=== PATIENT | female | born 1935 | race Caucasian/White ===

== ENCOUNTER 2016-04-12 09:13 | Emergency (ER) | payer OTHER ==
[~2016-04-12] VITALS: Ht 165.1 cm; Wt 67.8 kg
[~2016-04-12 09:13] MED LIST: NORVASC2.5 MG PO; OMEPRAZOLE20 M2 PO; SIMVASTATIN10 MG PO; ZESTRIL,PRINIVIL5 MG PO
[2016-04-12] MEDS ORDERED: B-12500 MC1 SL (10:10)
[2016-04-12 12:09] LABS: EOSINOPHIL (%) 0.3 % (0-5); HEMATOCRIT 41.5 % (36.0-46.0); IMMATURE GRANULOCYTE (%) 0.1 % (0.0-0.7); IMMATURE GRANULOCYTE COUNT 0.1 K/uL; LYMPHOCYTE COUNT 1.7 K/uL (1.0-2.8); MCH 32.9 PG (29.0-34.0); MCHC 34.5 G/DL (30.0-36.0); MCV 95.4 FL (83-99); MEAN PLAT.VOLUME 9.4 uM^3 (9.5-12.4); MONOCYTE (%) 10.1 % (3-12); NEUTROPHIL (%) 71.9 % (45-76); NEUTROPHIL COUNT 6.8 K/uL (1.8-6.4); PLATELET COUNT 229 K/uL (156-360); RBC DIS.WIDTH-CV 13.1 % (11.8-14.6); RED BLOOD COUNT 4.35 M/uL (3.80-5.20); WHITE BLOOD COUNT 9.5 K/uL (4.1-10.2)
[2016-04-12 12:17] LABS: CHLORIDE 106 mEq/L (99-109); POTASSIUM 3.6 mEq/L (3.7-5.4); SODIUM 141 mEq/L (136-147)
[2016-04-12 12:19] LABS: GLUCOSE 92 mg/dL (70-99)
[2016-04-12 12:20] LABS: ANION GAP 10 MEQ/L (2-14)
[2016-04-12 12:24] LABS: GFR ESTIMATE (CALCULATED) > 59 mL/min/; UREA NITROGEN (BUN) 12 mg/dL (9-23)
[2016-04-12 13:01] VITALS: BP 135/84
[2016-04-12] MEDS ORDERED: XARELTO15 MG PO (14:46)
== END 2016-04-12 15:15 | disposition home or self-care (01) ==
LOC: EME 09:13
PROVIDERS: Emergency Medicine
DX: I82.442 Acute embolism and thrombosis of left tibial vein (principal); Z98.890 Other specified postprocedural states; E78.5 Hyperlipidemia, unspecified
CPT/HCPCS: 73564; 80048; 85025; 93971; 99281; 99284

== ENCOUNTER 2016-04-15 13:09 | Emergency (ER) | payer OTHER ==
[~2016-04-15] VITALS: Ht 165.1 cm; Wt 69.0 kg
[~2016-04-15 13:09] MED LIST changes: +B-12500 MC1 SL; +XARELTO15 MG PO
[2016-04-15 14:04] LABS: HEMATOCRIT 42.7 % (36.0-46.0); MCH 32.7 PG (29.0-34.0); MCHC 34.4 G/DL (30.0-36.0); MCV 94.9 FL (83-99); MEAN PLAT.VOLUME 9.5 uM^3 (9.5-12.4); PLATELET COUNT 270 K/uL (156-360); RBC DIS.WIDTH-CV 12.7 % (11.8-14.6); RBC DIS.WIDTH-SD 42.7 % (39-53); WHITE BLOOD COUNT 11.5 K/uL (4.1-10.2)
[2016-04-15 14:12] LABS: CHLORIDE 107 mEq/L (99-109); POTASSIUM 3.5 mEq/L (3.7-5.4); SODIUM 144 mEq/L (136-147)
[2016-04-15 14:13] LABS: GLUCOSE 105 mg/dL (70-99)
[2016-04-15 14:14] VITALS: BP 148/120
[2016-04-15 14:15] LABS: ANION GAP 13 MEQ/L (2-14)
[2016-04-15 14:17] LABS: GFR ESTIMATE (CALCULATED) > 59 mL/min/
[2016-04-15 14:18] LABS: UREA NITROGEN (BUN) 12 mg/dL (9-23)
[2016-04-15 14:30] VITALS: BP 124/65
[2016-04-15 15:19] VITALS: BP 124/65
== END 2016-04-15 15:15 | disposition home or self-care (01) ==
LOC: EME 13:09
DX: K92.2 Gastrointestinal hemorrhage, unspecified (principal); I82.402 Acute embolism and thrombosis of unspecified deep veins of left lower extremity; E78.5 Hyperlipidemia, unspecified; I10 Essential (primary) hypertension; Z86.718 Personal history of other venous thrombosis and embolism
CPT/HCPCS: 80048; 85027; 86850; 86900; 86901; 99281; 99284

== ENCOUNTER 2017-02-16 10:52 | Inpatient (IN) | payer OTHER ==
[~2017-02-16] VITALS: Ht 167.6 cm; Wt 75.8 kg
[2017-02-16 11:37] LABS: BASOPHIL (%) 0.1 % (0-1); EOSINOPHIL (%) 0 % (0-5); HEMATOCRIT 44.2 % (36.0-46.0); HEMOGLOBIN 14.6 G/DL (11.9-15.5); IMMATURE GRANULOCYTE (%) 0.5 % (0.0-0.7); LYMPHOCYTE (%) 2.1 % (15-42); LYMPHOCYTE COUNT 0.3 K/uL (1.0-2.8); MCV 96.9 FL (83-99); MONOCYTE (%) 4.7 % (3-12); MONOCYTE COUNT 0.6 K/uL (0-0.8); NEUTROPHIL (%) 92.6 % (45-76); NEUTROPHIL COUNT 12.2 K/uL (1.8-6.4); PLATELET COUNT 242 K/uL (156-360); RED BLOOD COUNT 4.56 M/uL (3.80-5.20); WHITE BLOOD COUNT 13.2 K/uL (4.1-10.2)
[2017-02-16 11:41] LABS: INTER. NORMALIZED RATIO 1.2
[2017-02-16 11:44] LABS: PTT 21.7 SEC (25-37)
[2017-02-16 11:47] LABS: ALBUMIN 3.4 g/dL (3.2-4.8); CHLORIDE 103 mEq/L (99-109); POTASSIUM 3.6 mEq/L (3.7-5.4); SODIUM 141 mEq/L (136-147)
[2017-02-16 11:50] LABS: GLUCOSE 142 mg/dL (70-99)
[2017-02-16 11:52] LABS: TOTAL BILIRUBIN 0.8 mg/dL (0.0-1.0)
[2017-02-16 11:53] LABS: ALKALINE PHOSPHATASE 83 IU/L (3-129); GFR ESTIMATE (CALCULATED) 57 mL/min/
[2017-02-16 11:54] LABS: UREA NITROGEN (BUN) 21 mg/dL (9-23)
[2017-02-16 11:55] LABS: AST (GOT) 17 IU/L (2-34)
[2017-02-16 11:56] LABS: ALT (GPT) 14 IU/L (3-49); CREATINE KINASE 59 IU/L (1-294); TOTAL CK 59 IU/L (1-294)
[2017-02-16 11:57] LABS: TROP-I INTERPRETATION NEGATIVE; TROPONIN-I 0.14 ng/mL (0.0-0.30)
[2017-02-16 12:04] LABS: CK-MB 2.8 ng/mL (0.0-4.9); CKMB RELATIVE INDEX 4.7 (0.0-3.9)
[2017-02-16] MEDS ORDERED: LO-DOSE ASPIRIN81 M2 PO (12:19)
[2017-02-16 18:21] VITALS: BP 93/54
[2017-02-16 19:39] VITALS: BP 131/73
[2017-02-16 20:45] VITALS: BP 162/91
[2017-02-16 23:02] VITALS: BP 107/58
[2017-02-17] VITALS (7 sets, daily range): BP systolic 96–144; BP diastolic 56–80
[2017-02-17 03:37] LABS: INTER. NORMALIZED RATIO 1.4
[2017-02-17 16:03] LABS: CARBOXY HGB 2.1 % (0-5); METHEMOGLOBIN 1.6 % (0-1.5); PCO2 49 mm Hg (35-45); PO2 70 mm Hg (80-100); pH 7.38 (7.35-7.45)
[2017-02-17 16:04] LABS: COMMENTS - BLOOD GASES A+C+; DEVICE NC; O2 FLOW 4 L/MIN; SITE RR; TOTAL RESP RATE 22 resp/min
[2017-02-18 03:31] VITALS: BP 118/64
[2017-02-18 06:27] LABS: INTER. NORMALIZED RATIO 1.2
[2017-02-18 06:30] LABS: HEMATOCRIT 40.7 % (36.0-46.0); MCH 31.6 PG (29.0-34.0); MCHC 31.9 G/DL (30.0-36.0); PLATELET COUNT 309 K/uL (156-360); RBC DIS.WIDTH-CV 14.1 % (11.8-14.6); RBC DIS.WIDTH-SD 51.9 % (39-53); RED BLOOD COUNT 4.11 M/uL (3.80-5.20); WHITE BLOOD COUNT 17.9 K/uL (4.1-10.2)
[2017-02-18 06:31] LABS: CHLORIDE 104 MEQ/L (99-109); CREATININE 1.4 MG/DL (0.6-1.3); GFR ESTIMATE (CALCULATED) 38 mL/min/; GLUCOSE 206 mg/dL (70-99); SODIUM 139 MEQ/L (136-147)
[2017-02-18 06:33] LABS: POTASSIUM 4.9 MEQ/L (3.7-5.4); UREA NITROGEN (BUN) 39 mg/dL (9-23)
[2017-02-18 06:52] LABS: PTT 72.7 SEC (25-37)
[2017-02-18 07:15] VITALS: BP 129/66
[2017-02-18 11:15] VITALS: BP 117/72
[2017-02-18 17:08] LABS: TYPE OF FLUID PLEURAL
[2017-02-18 17:50] LABS: BODY FLUID GLUCOSE 220 MG/DL; BODY FLUID LDH 70 IU/L
[2017-02-18 18:18] LABS: BODY FLUID PROTEIN < 3.0 G/DL
[2017-02-18 18:29] LABS: APPEARANCE HAZY-YELLOW; BODY FLUID EOSINOPHILS 0 % (0-25); BODY FLUID RBC'S 1000 /MM^3 (0-100); BODY FLUID WBC'S 3534 /MM^3 (0-500); MONONUCLEAR WBC'S 100 %; POLYNUCLEAR WBC'S 0 % (0-25)
[2017-02-18 19:33] VITALS: BP 134/64
[2017-02-18 23:23] VITALS: BP 139/81
[2017-02-19 04:29] VITALS: BP 138/79
[2017-02-19 05:36] LABS: INTER. NORMALIZED RATIO 1.5
[2017-02-19 05:38] LABS: PTT 76.4 SEC (25-37)
[2017-02-19 07:46] VITALS: BP 137/72
[2017-02-19 11:25] LABS: CHLORIDE 102 MEQ/L (99-109); POTASSIUM 5.5 MEQ/L (3.7-5.4); SODIUM 136 MEQ/L (136-147)
[2017-02-19 11:32] LABS: GFR ESTIMATE (CALCULATED) 27 mL/min/; GLUCOSE 187 mg/dL (70-99)
[2017-02-19 11:40] LABS: CREATININE 1.9 MG/DL (0.6-1.3); UREA NITROGEN (BUN) 60 mg/dL (9-23)
[2017-02-19 11:56] VITALS: BP 109/58
[2017-02-19 17:11] VITALS: BP 144/65
[2017-02-19 19:10] VITALS: BP 92/58
[2017-02-19 20:06] LABS: BILIRUBIN NEGATIVE; BLOOD NEGATIVE; COLOR YELLOW ((YELLOW)); GLUCOSE (STRIP) NEGATIVE; KETONES NEGATIVE; LEUKOCYTES NEGATIVE; NITRITE NEGATIVE; PROTEIN (STRIP) NEGATIVE; UROBILINOGEN 0.2 MG/DL (0.2-1.0)
[2017-02-19 20:07] LABS: APPEARANCE CLEAR ((CLEAR))
[2017-02-19 23:31] VITALS: BP 121/78
[2017-02-20 04:09] VITALS: BP 103/65
[2017-02-20 05:53] LABS: BASOPHIL (%) 0.2 % (0-1); EOSINOPHIL (%) 0 % (0-5); HEMATOCRIT 40.8 % (36.0-46.0); HEMOGLOBIN 13.4 G/DL (11.9-15.5); IMMATURE GRANULOCYTE (%) 1.6 % (0.0-0.7); LYMPHOCYTE COUNT 0.6 K/uL (1.0-2.8); MCH 32.9 PG (29.0-34.0); MCHC 32.8 G/DL (30.0-36.0); MCV 100.2 FL (83-99); MONOCYTE (%) 3.4 % (3-12); MONOCYTE COUNT 0.7 K/uL (0-0.8); NEUTROPHIL (%) 91.8 % (45-76); NEUTROPHIL COUNT 18.5 K/uL (1.8-6.4); PLATELET COUNT 260 K/uL (156-360); RBC DIS.WIDTH-CV 14.1 % (11.8-14.6); RBC DIS.WIDTH-SD 51.4 % (39-53); RED BLOOD COUNT 4.07 M/uL (3.80-5.20); WHITE BLOOD COUNT 20.1 K/uL (4.1-10.2)
[2017-02-20 06:02] LABS: INTER. NORMALIZED RATIO 1.9
[2017-02-20 06:06] LABS: PTT 74.5 SEC (25-37)
[2017-02-20 06:20] LABS: CHLORIDE 102 MEQ/L (99-109); CREATININE 1.8 MG/DL (0.6-1.3); GFR ESTIMATE (CALCULATED) 29 mL/min/; GLUCOSE 200 mg/dL (70-99); MAGNESIUM 2.2 mg/dl (1.3-2.7); POTASSIUM 5.1 MEQ/L (3.7-5.4); SODIUM 137 MEQ/L (136-147); UREA NITROGEN (BUN) 57 mg/dL (9-23); URIC ACID 8.4 mg/dL (3.1-9.2)
[2017-02-20 08:06] VITALS: BP 143/70
[2017-02-20 09:52] LABS: CHLORIDE 105 MEQ/L (99-109); CREATININE 1.8 MG/DL (0.6-1.3); GFR ESTIMATE (CALCULATED) 29 mL/min/; GLUCOSE 184 mg/dL (70-99); SODIUM 140 MEQ/L (136-147); UREA NITROGEN (BUN) 55 mg/dL (9-23)
[2017-02-20 11:44] VITALS: BP 141/64
[2017-02-20 17:03] VITALS: BP 136/81
[2017-02-20 19:11] VITALS: BP 112/76
[2017-02-20 23:39] VITALS: BP 116/65
[2017-02-21 05:01] VITALS: BP 125/79
[2017-02-21 05:51] LABS: BASOPHIL (%) 0.4 % (0-1); BASOPHIL COUNT 0.1 K/uL (0-0.1); EOSINOPHIL (%) 0 % (0-5); HEMATOCRIT 40.5 % (36.0-46.0); HEMOGLOBIN 13.2 G/DL (11.9-15.5); IMMATURE GRANULOCYTE (%) 3.5 % (0.0-0.7); LYMPHOCYTE (%) 2.9 % (15-42); LYMPHOCYTE COUNT 0.6 K/uL (1.0-2.8); MCH 32.2 PG (29.0-34.0); MCHC 32.6 G/DL (30.0-36.0); MCV 98.8 FL (83-99); MONOCYTE (%) 3.3 % (3-12); MONOCYTE COUNT 0.7 K/uL (0-0.8); NEUTROPHIL (%) 89.9 % (45-76); NEUTROPHIL COUNT 19.9 K/uL (1.8-6.4); PLATELET COUNT 248 K/uL (156-360); RBC DIS.WIDTH-CV 13.7 % (11.8-14.6); RBC DIS.WIDTH-SD 50.4 % (39-53); WHITE BLOOD COUNT 22.1 K/uL (4.1-10.2)
[2017-02-21 05:57] LABS: INTER. NORMALIZED RATIO 2.3
[2017-02-21 06:00] LABS: PTT 96.7 SEC (25-37)
[2017-02-21 06:25] LABS: CHLORIDE 105 MEQ/L (99-109); GFR ESTIMATE (CALCULATED) 46 mL/min/; GLUCOSE 171 mg/dL (70-99); POTASSIUM 4.9 MEQ/L (3.7-5.4); SODIUM 141 MEQ/L (136-147); UREA NITROGEN (BUN) 45 mg/dL (9-23)
[2017-02-21 06:27] LABS: CREATININE 1.2 MG/DL (0.6-1.3)
[2017-02-21 08:30] VITALS: BP 109/77
[2017-02-21 11:22] VITALS: BP 103/54
[2017-02-21] MEDS ORDERED: LORAZEPAM0.5 MG PO (14:06)
[2017-02-21] MEDS ORDERED: COUMADIN3 MG PO (15:04)
[2017-02-21] MEDS ORDERED: DUONEB 2.5-0.5 M3 ML AEROSOL ×3 (15:07→15:43)
[2017-02-21] MEDS ORDERED: COREG6.25 M1 PO (15:33)
[2017-02-21] MEDS ORDERED: ADVAIR HFA120 INHALA IH (15:34)
[2017-02-21] MEDS ORDERED: SINGULAIR10 MG PO (15:34)
[2017-02-21] MEDS ORDERED: SPIRIVA RESPIMAT4 G1 IH (15:38)
[2017-02-21] MEDS ORDERED: CARDIZEM CD,CA180 MG PO (15:39)
[2017-02-21] MEDS ORDERED: PRAVACHOL40 MG PO (15:41)
== END 2017-02-21 14:41 | DRG 175 ==
LOC: EME 10:52 → 4EAST 13:42 → EDOF 13:42 → ENRESERV 13:54 → EDOF 14:00 → ENRESERV 15:44 → 4EAST 17:57
PROVIDERS: Emergency Medicine; Family Medicine; Internal Medicine Cardiovascular Disease; Internal Medicine Nephrology; Radiology Diagnostic Radiology
DX: I26.99 Other pulmonary embolism without acute cor pulmonale (principal); J18.9 Pneumonia, unspecified organism; N17.0 Acute kidney failure with tubular necrosis; I48.1 Persistent atrial fibrillation; J90 Pleural effusion, not elsewhere classified; I11.0 Hypertensive heart disease with heart failure; I50.21 Acute systolic (congestive) heart failure; J45.21 Mild intermittent asthma with (acute) exacerbation; E86.0 Dehydration; E87.5 Hyperkalemia; I27.20 Pulmonary hypertension, unspecified; I08.1 Rheumatic disorders of both mitral and tricuspid valves; N14.1 Nephropathy induced by other drugs, medicaments and biological substances; T50.8X5A Adverse effect of diagnostic agents, initial encounter; R09.02 Hypoxemia; I25.5 Ischemic cardiomyopathy; E78.5 Hyperlipidemia, unspecified; I73.9 Peripheral vascular disease, unspecified; M19.90 Unspecified osteoarthritis, unspecified site; Z66 Do not resuscitate; Z91.81 History of falling; Z86.718 Personal history of other venous thrombosis and embolism; Z87.891 Personal history of nicotine dependence; Z90.49 Acquired absence of other specified parts of digestive tract; Z79.82 Long term (current) use of aspirin
CPT/HCPCS: 36600; 71045; 71046; 71275; 76770; 76942; 80048; 80048 91; 80053; 81003; 82550; 82553; 82570; 82803; 82945; 83605; 83615 91; 83735; 83880; 84100; 84156; 84157; 84484; 84550; 85025; 85027; 85610; 85730; 87040; 87070; 87075; 87205; 88108; 88305; 89051; 93005; 93306; 94640; 94640 76; 94760; 94799; 99202; 99281; 99285; J0692; J0696; J1160; J1940; J2920; J2930; J7040; J7050

== ENCOUNTER 2017-02-21 08:18 | Inpatient (IN) | payer OTHER ==
[~2017-02-21] VITALS: Ht 167.6 cm; Wt 74.2 kg
[~2017-02-21 08:18] MED LIST changes: +LO-DOSE ASPIRIN81 M2 PO
[2017-02-21] MEDS ORDERED: LORAZEPAM0.5 MG PO (14:06)
[2017-02-21 15:00] VITALS: BP 125/87
[2017-02-21] MEDS ORDERED: COUMADIN3 MG PO (15:04)
[2017-02-21] MEDS ORDERED: DUONEB 2.5-0.5 M3 ML AEROSOL ×3 (15:07→15:43)
[2017-02-21] MEDS ORDERED: COREG6.25 M1 PO (15:33)
[2017-02-21] MEDS ORDERED: ADVAIR HFA120 INHALA IH (15:34)
[2017-02-21] MEDS ORDERED: SINGULAIR10 MG PO (15:34)
[2017-02-21] MEDS ORDERED: SPIRIVA RESPIMAT4 G1 IH (15:38)
[2017-02-21] MEDS ORDERED: CARDIZEM CD,CA180 MG PO (15:39)
[2017-02-21] MEDS ORDERED: PRAVACHOL40 MG PO (15:41)
[2017-02-22 05:56] VITALS: BP 124/84
[2017-02-22 07:52] LABS: HEMATOCRIT 44.4 % (36.0-46.0); HEMOGLOBIN 14.6 G/DL (11.9-15.5); MCH 31.9 PG (29.0-34.0); MCHC 32.9 G/DL (30.0-36.0); MCV 97.2 FL (83-99); PLATELET COUNT 316 K/uL (156-360); RBC DIS.WIDTH-CV 13.5 % (11.8-14.6); RBC DIS.WIDTH-SD 48.4 % (39-53); RED BLOOD COUNT 4.57 M/uL (3.80-5.20); WHITE BLOOD COUNT 24.5 K/uL (4.1-10.2)
[2017-02-22 07:57] LABS: INTER. NORMALIZED RATIO 3.2
[2017-02-22 08:34] LABS: ALKALINE PHOSPHATASE 74 IU/L (3-129); ALT (GPT) 14 IU/L (3-49); AST (GOT) 10 IU/L (2-34); CHLORIDE 103 MEQ/L (99-109); CREATININE 1.2 MG/DL (0.6-1.3); GFR ESTIMATE (CALCULATED) 46 mL/min/; GLUCOSE 167 mg/dL (70-99); POTASSIUM 4.1 MEQ/L (3.7-5.4); SODIUM 141 MEQ/L (136-147); TOTAL BILIRUBIN 0.4 MG/DL (0.0-1.0); TOTAL PROTEIN 5.4 G/DL (6.4-8.3); UREA NITROGEN (BUN) 37 mg/dL (9-23)
[2017-02-22 15:42] VITALS: BP 128/75
[2017-02-23 06:20] VITALS: BP 122/86
[2017-02-23 07:46] LABS: BASOPHIL (%) 0.4 % (0-1); BASOPHIL COUNT 0.1 K/uL (0-0.1); EOSINOPHIL (%) 0 % (0-5); HEMATOCRIT 43.1 % (36.0-46.0); HEMOGLOBIN 14.4 G/DL (11.9-15.5); IMMATURE GRANULOCYTE (%) 3.8 % (0.0-0.7); LYMPHOCYTE (%) 4.9 % (15-42); LYMPHOCYTE COUNT 1.1 K/uL (1.0-2.8); MCH 32.4 PG (29.0-34.0); MCHC 33.4 G/DL (30.0-36.0); MCV 97.1 FL (83-99); MONOCYTE (%) 7.9 % (3-12); MONOCYTE COUNT 1.8 K/uL (0-0.8); NEUTROPHIL COUNT 18.5 K/uL (1.8-6.4); NRBC (%) 0.1 /100 WBC (0-0); PLATELET COUNT 282 K/uL (156-360); RBC DIS.WIDTH-CV 13.5 % (11.8-14.6); RBC DIS.WIDTH-SD 48.2 % (39-53); RED BLOOD COUNT 4.44 M/uL (3.80-5.20); WHITE BLOOD COUNT 22.3 K/uL (4.1-10.2)
[2017-02-23 08:07] LABS: CHLORIDE 104 MEQ/L (99-109); GFR ESTIMATE (CALCULATED) 57 mL/min/; GLUCOSE 139 mg/dL (70-99); POTASSIUM 3.9 MEQ/L (3.7-5.4); SODIUM 145 MEQ/L (136-147); UREA NITROGEN (BUN) 37 mg/dL (9-23)
[2017-02-23 14:23] LABS: INTER. NORMALIZED RATIO 3.2
[2017-02-23 15:19] VITALS: BP 102/68
[2017-02-24 05:42] VITALS: BP 124/76
[2017-02-24 05:43] LABS: INTER. NORMALIZED RATIO 3.3
[2017-02-24 15:34] VITALS: BP 109/10
[2017-02-24 21:20] VITALS: BP 161/74
[2017-02-25 04:56] VITALS: BP 111/78
[2017-02-25 06:13] LABS: INTER. NORMALIZED RATIO 2.5
[2017-02-25 15:20] VITALS: BP 114/72
[2017-02-26 06:02] VITALS: BP 108/74
[2017-02-26 06:59] LABS: INTER. NORMALIZED RATIO 2.1
[2017-02-26 11:10] VITALS: BP 102/72
[2017-02-26 12:10] VITALS: BP 117/68
[2017-02-26 12:17] LABS: PLATELET COUNT 297 K/uL (156-360)
[2017-02-26 12:33] LABS: HEMATOCRIT 45.1 % (36.0-46.0); MCH 31.6 PG (29.0-34.0); MCHC 33.3 G/DL (30.0-36.0); MCV 94.9 FL (83-99); RBC DIS.WIDTH-CV 13.5 % (11.8-14.6); RBC DIS.WIDTH-SD 47.7 % (39-53); RED BLOOD COUNT 4.75 M/uL (3.80-5.20)
[2017-02-26 12:40] LABS: WHITE BLOOD COUNT 30.8 K/uL (4.1-10.2)
== END 2017-02-26 12:25 | DRG 945 ==
LOC: 3WEST 08:18
PROVIDERS: Internal Medicine Pulmonary Disease; Physical Medicine & Rehabilitation Pain Medicine; Physician Assistant
PROC: F07M0ZZ Range of Motion and Joint Mobility Treatment of Musculoskeletal System - Whole Body (ICD-10-PCS; principal; 2017-02-21)
PROC: 30233K1 Transfusion of Nonautologous Frozen Plasma into Peripheral Vein, Percutaneous Approach (ICD-10-PCS; 2017-02-26)
DX: R53.1 Weakness (principal); R26.2 Difficulty in walking, not elsewhere classified; I26.99 Other pulmonary embolism without acute cor pulmonale; J18.9 Pneumonia, unspecified organism; N17.9 Acute kidney failure, unspecified; K66.8 Other specified disorders of peritoneum; I48.91 Unspecified atrial fibrillation; I11.0 Hypertensive heart disease with heart failure; I50.20 Unspecified systolic (congestive) heart failure; I42.9 Cardiomyopathy, unspecified; E83.51 Hypocalcemia; E87.5 Hyperkalemia; J45.21 Mild intermittent asthma with (acute) exacerbation; E78.5 Hyperlipidemia, unspecified; R91.8 Other nonspecific abnormal finding of lung field; F41.9 Anxiety disorder, unspecified; I25.10 Atherosclerotic heart disease of native coronary artery without angina pectoris; K59.00 Constipation, unspecified; Z91.81 History of falling; Z86.711 Personal history of pulmonary embolism; Z86.718 Personal history of other venous thrombosis and embolism; Z79.01 Long term (current) use of anticoagulants; Z87.891 Personal history of nicotine dependence; Z87.19 Personal history of other diseases of the digestive system
CPT/HCPCS: 71045; 74018; 80048; 80053; 85025; 85027; 85610; 86850; 86900; 86901; 86920; 94640 76; 94799; 97110 GO; 97530 GP; J0696; J3010; J7512; P9017

== ENCOUNTER 2017-02-26 13:41 | Inpatient (IN) | payer OTHER ==
[~2017-02-26] VITALS: Ht 167.6 cm; Wt 70.4 kg
[2017-02-26 13:02] VITALS: BP 106/68
[~2017-02-26 13:41] MED LIST changes: +ADVAIR HFA120 INHALA IH; +CARDIZEM CD,CA180 MG PO; +COREG6.25 M1 PO; +COUMADIN3 MG PO; +DUONEB 2.5-0.5 M3 ML AEROSOL; +LORAZEPAM0.5 MG PO; +PRAVACHOL40 MG PO; +SINGULAIR10 MG PO; +SPIRIVA RESPIMAT4 G1 IH
[2017-02-26 15:06] LABS: APPEARANCE CLOUDY ((CLEAR)); BILIRUBIN NEGATIVE; BLOOD MODERATE; COLOR YELLOW ((YELLOW)); GLUCOSE (STRIP) 50; KETONES NEGATIVE; LEUKOCYTES LARGE; NITRITE NEGATIVE; PROTEIN (STRIP) NEGATIVE; SPECIFIC GRAVITY 1.017 (1.000-1.030); UROBILINOGEN 0.2 MG/DL (0.2-1.0)
[2017-02-26 17:26] LABS: PLATELET COUNT 263 K/uL (156-360)
[2017-02-26 17:54] LABS: CHLORIDE 103 MEQ/L (99-109); CREATININE 0.9 MG/DL (0.6-1.3); GFR ESTIMATE (CALCULATED) > 59 mL/min/; GLUCOSE 123 mg/dL (70-99); MAGNESIUM 1.7 mg/dl (1.3-2.7); SODIUM 143 MEQ/L (136-147); UREA NITROGEN (BUN) 23 mg/dL (9-23)
[2017-02-26 18:29] LABS: HEMOGLOBIN 13.1 G/DL (11.9-15.5); MCH 32.5 PG (29.0-34.0); MCHC 33.6 G/DL (30.0-36.0); MCV 96.8 FL (83-99); RBC DIS.WIDTH-CV 13.7 % (11.8-14.6); RBC DIS.WIDTH-SD 48.8 % (39-53); RED BLOOD COUNT 4.03 M/uL (3.80-5.20); WHITE BLOOD COUNT 40.5 K/uL (4.1-10.2)
[2017-02-26 19:00] VITALS: BP 157/80
[2017-02-26 19:15] VITALS: BP 157/80
[2017-02-26 20:00] VITALS: BP 119/70
[2017-02-26 20:44] LABS: EPITHELIAL CELLS 4+ /HPF
[2017-02-26 20:45] LABS: MUCUS TRACE /LPF; RED BLOOD CELLS 0-5 /HPF (0-5); WHITE BLOOD CELLS 15-20 /HPF (0-5)
[2017-02-26 20:46] LABS: BACTERIA RARE /HPF
[2017-02-26 22:00] VITALS: BP 117/82
[2017-02-27] VITALS (8 sets, daily range): BP systolic 0–123; BP diastolic 0–73
[2017-02-27 05:19] LABS: PLATELET COUNT 244 K/uL (156-360)
[2017-02-27 05:25] LABS: HEMATOCRIT 35.1 % (36.0-46.0); HEMOGLOBIN 11.5 G/DL (11.9-15.5); MCHC 32.8 G/DL (30.0-36.0); MCV 97.8 FL (83-99); RBC DIS.WIDTH-CV 13.6 % (11.8-14.6); RBC DIS.WIDTH-SD 48.7 % (39-53); RED BLOOD COUNT 3.59 M/uL (3.80-5.20); WHITE BLOOD COUNT 31.7 K/uL (4.1-10.2)
[2017-02-27 05:55] LABS: CHLORIDE 102 MEQ/L (99-109); CREATININE 0.8 MG/DL (0.6-1.3); GFR ESTIMATE (CALCULATED) > 59 mL/min/; GLUCOSE 132 mg/dL (70-99); MAGNESIUM 1.6 mg/dl (1.3-2.7); PHOSPHORUS 4.7 mg/dL (2.5-4.9); POTASSIUM 4.2 MEQ/L (3.7-5.4); SODIUM 143 MEQ/L (136-147); UREA NITROGEN (BUN) 21 mg/dL (9-23)
[2017-02-28] VITALS (8 sets, daily range): BP systolic 104–128; BP diastolic 55–70
[2017-02-28 05:55] LABS: BASOPHIL (%) 0.2 % (0-1); BASOPHIL COUNT 0.1 K/uL (0-0.1); EOSINOPHIL (%) 0.6 % (0-5); EOSINOPHIL COUNT 0.2 K/uL (0-0.3); IMMATURE GRANULOCYTE (%) 1.4 % (0.0-0.7); LYMPHOCYTE (%) 3.6 % (15-42); LYMPHOCYTE COUNT 1.1 K/uL (1.0-2.8); MONOCYTE (%) 5.3 % (3-12); MONOCYTE COUNT 1.6 K/uL (0-0.8); NEUTROPHIL (%) 88.9 % (45-76); NEUTROPHIL COUNT 26.6 K/uL (1.8-6.4); PLATELET COUNT 214 K/uL (156-360)
[2017-02-28 05:58] LABS: HEMATOCRIT 30.2 % (36.0-46.0); HEMOGLOBIN 9.8 G/DL (11.9-15.5); MCH 32.8 PG (29.0-34.0); MCHC 32.5 G/DL (30.0-36.0); RBC DIS.WIDTH-CV 14.2 % (11.8-14.6); RED BLOOD COUNT 2.99 M/uL (3.80-5.20)
[2017-02-28 06:23] LABS: ALBUMIN 2.3 G/DL (3.2-4.8); ALKALINE PHOSPHATASE 45 IU/L (3-129); ALT (GPT) 12 IU/L (3-49); AST (GOT) 8 IU/L (2-34); CHLORIDE 104 MEQ/L (99-109); CREATININE 0.9 MG/DL (0.6-1.3); DIRECT BILIRUBIN 0.2 mg/dL (0.0-0.3); GFR ESTIMATE (CALCULATED) > 59 mL/min/; PHOSPHORUS 3.1 mg/dL (2.5-4.9); POTASSIUM 4.2 MEQ/L (3.7-5.4); PREALBUMIN 13.7 mg/dL (10-40); SODIUM 143 MEQ/L (136-147); TRIGLYCERIDES 139 MG/DL (Normal: <150); UREA NITROGEN (BUN) 23 mg/dL (9-23)
[2017-02-28 06:26] LABS: GLUCOSE 206 mg/dL (70-99); MAGNESIUM 1.9 mg/dl (1.3-2.7); TOTAL BILIRUBIN 0.5 MG/DL (0.0-1.0); TOTAL PROTEIN 4.1 G/DL (6.4-8.3)
[2017-03-01 04:00] VITALS: BP 118/83
[2017-03-01 06:11] LABS: HEMATOCRIT 27.2 % (36.0-46.0); HEMOGLOBIN 8.5 G/DL (11.9-15.5); MCH 31.1 PG (29.0-34.0); MCHC 31.3 G/DL (30.0-36.0); MCV 99.6 FL (83-99); PLATELET COUNT 193 K/uL (156-360); RBC DIS.WIDTH-CV 14.1 % (11.8-14.6); RBC DIS.WIDTH-SD 51.3 % (39-53); RED BLOOD COUNT 2.73 M/uL (3.80-5.20); WHITE BLOOD COUNT 29.2 K/uL (4.1-10.2)
[2017-03-01 06:55] LABS: CHLORIDE 107 MEQ/L (99-109); CREATININE 0.9 MG/DL (0.6-1.3); GFR ESTIMATE (CALCULATED) > 59 mL/min/; GLUCOSE 177 mg/dL (70-99); PHOSPHORUS 2.3 mg/dL (2.5-4.9); POTASSIUM 3.9 MEQ/L (3.7-5.4); SODIUM 144 MEQ/L (136-147); UREA NITROGEN (BUN) 33 mg/dL (9-23)
[2017-03-01 06:58] LABS: MAGNESIUM 2.4 mg/dl (1.3-2.7)
[2017-03-01 08:20] VITALS: BP 141/60
[2017-03-01 12:02] VITALS: BP 123/60
[2017-03-01 16:50] VITALS: BP 122/62
[2017-03-01 20:00] VITALS: BP 121/68
[2017-03-01 23:55] VITALS: BP 134/60
[2017-03-02 04:00] VITALS: BP 124/71
[2017-03-02 06:02] LABS: HEMATOCRIT 26.7 % (36.0-46.0); HEMOGLOBIN 8.6 G/DL (11.9-15.5); MCH 32.7 PG (29.0-34.0); MCHC 32.2 G/DL (30.0-36.0); MCV 101.5 FL (83-99); NRBC (%) 0.1 /100 WBC (0-0); PLATELET COUNT 214 K/uL (156-360); RBC DIS.WIDTH-CV 14.2 % (11.8-14.6); RBC DIS.WIDTH-SD 52.1 % (39-53); RED BLOOD COUNT 2.63 M/uL (3.80-5.20); WHITE BLOOD COUNT 26.5 K/uL (4.1-10.2)
[2017-03-02 06:46] LABS: CHLORIDE 113 MEQ/L (99-109); CREATININE 0.8 MG/DL (0.6-1.3); GFR ESTIMATE (CALCULATED) > 59 mL/min/; GLUCOSE 191 mg/dL (70-99); MAGNESIUM 2.4 mg/dl (1.3-2.7); PHOSPHORUS 3.1 mg/dL (2.5-4.9); POTASSIUM 3.8 MEQ/L (3.7-5.4); SODIUM 149 MEQ/L (136-147); UREA NITROGEN (BUN) 31 mg/dL (9-23)
[2017-03-02 08:40] VITALS: BP 134/66
[2017-03-02 11:17] VITALS: BP 141/59
[2017-03-02 16:07] VITALS: BP 144/78
[2017-03-02 19:45] VITALS: BP 150/70
[2017-03-02 22:20] VITALS: BP 143/80
[2017-03-03] VITALS (9 sets, daily range): BP systolic 104–165; BP diastolic 64–83
[2017-03-03 05:39] LABS: BASOPHIL (%) 0.2 % (0-1); BASOPHIL COUNT 0.1 K/uL (0-0.1); EOSINOPHIL (%) 0.5 % (0-5); EOSINOPHIL COUNT 0.2 K/uL (0-0.3); HEMATOCRIT 27.5 % (36.0-46.0); HEMOGLOBIN 8.7 G/DL (11.9-15.5); IMMATURE GRANULOCYTE (%) 1.4 % (0.0-0.7); LYMPHOCYTE (%) 3.6 % (15-42); LYMPHOCYTE COUNT 1.1 K/uL (1.0-2.8); MCH 31.8 PG (29.0-34.0); MCHC 31.6 G/DL (30.0-36.0); MCV 100.4 FL (83-99); MONOCYTE (%) 5.5 % (3-12); MONOCYTE COUNT 1.6 K/uL (0-0.8); NEUTROPHIL (%) 88.8 % (45-76); NEUTROPHIL COUNT 26.1 K/uL (1.8-6.4); RBC DIS.WIDTH-CV 14.3 % (11.8-14.6); RBC DIS.WIDTH-SD 51.7 % (39-53); RED BLOOD COUNT 2.74 M/uL (3.80-5.20); WHITE BLOOD COUNT 29.4 K/uL (4.1-10.2)
[2017-03-03 05:40] LABS: PLATELET COUNT 304 K/uL (156-360)
[2017-03-03 06:31] LABS: ALBUMIN 2.4 G/DL (3.2-4.8); ALKALINE PHOSPHATASE 59 IU/L (3-129); ALT (GPT) 11 IU/L (3-49); AST (GOT) 8 IU/L (2-34); CHLORIDE 112 MEQ/L (99-109); CREATININE 0.7 MG/DL (0.6-1.3); DIRECT BILIRUBIN 0.1 mg/dL (0.0-0.3); GFR ESTIMATE (CALCULATED) > 59 mL/min/; GLUCOSE 166 mg/dL (70-99); MAGNESIUM 2.2 mg/dl (1.3-2.7); POTASSIUM 4.1 MEQ/L (3.7-5.4); PREALBUMIN 14.3 mg/dL (10-40); SODIUM 151 MEQ/L (136-147); TOTAL BILIRUBIN 0.5 MG/DL (0.0-1.0); TOTAL PROTEIN 4.6 G/DL (6.4-8.3); TRIGLYCERIDES 157 MG/DL (Normal: <150); UREA NITROGEN (BUN) 29 mg/dL (9-23)
[2017-03-04 00:39] VITALS: BP 104/63
[2017-03-04 05:27] VITALS: BP 134/75
[2017-03-04 06:25] LABS: HEMATOCRIT 31.6 % (36.0-46.0); HEMOGLOBIN 10.1 G/DL (11.9-15.5); MCH 31.5 PG (29.0-34.0); MCV 98.4 FL (83-99); RBC DIS.WIDTH-CV 15.5 % (11.8-14.6); RBC DIS.WIDTH-SD 55.1 % (39-53); RED BLOOD COUNT 3.21 M/uL (3.80-5.20); WHITE BLOOD COUNT 21.6 K/uL (4.1-10.2)
[2017-03-04 06:47] LABS: CHLORIDE 113 MEQ/L (99-109); CREATININE 0.7 MG/DL (0.6-1.3); GFR ESTIMATE (CALCULATED) > 59 mL/min/; GLUCOSE 164 mg/dL (70-99); PHOSPHORUS 2.8 mg/dL (2.5-4.9); POTASSIUM 3.9 MEQ/L (3.7-5.4); SODIUM 145 MEQ/L (136-147); UREA NITROGEN (BUN) 30 mg/dL (9-23)
[2017-03-04 06:49] LABS: MAGNESIUM 1.7 mg/dl (1.3-2.7)
[2017-03-04 07:05] LABS: HEMATOLOGY COMMENT 1 UNABLE TO REPORT; PLATELET COUNT UNABLE TO REPORT K/uL (156-360)
[2017-03-04 08:00] VITALS: BP 147/76
[2017-03-04 12:27] VITALS: BP 140/63
[2017-03-04 13:01] LABS: 24 HR VOLUME 2550 MLS; URINE UREA NITROGEN 13770 MG/24 HR
[2017-03-04 14:33] LABS: INTER. NORMALIZED RATIO 1.3
[2017-03-04 16:00] VITALS: BP 152/65
[2017-03-04 19:00] VITALS: BP 131/67
[2017-03-05 00:46] VITALS: BP 133/69
[2017-03-05 01:58] LABS: APPEARANCE CLOUDY ((CLEAR)); BILIRUBIN NEGATIVE; BLOOD LARGE; COLOR AMBER ((YELLOW)); GLUCOSE (STRIP) 50; KETONES NEGATIVE; LEUKOCYTES MODERATE; NITRITE NEGATIVE; PROTEIN (STRIP) 30; SPECIFIC GRAVITY 1.023 (1.000-1.030); UROBILINOGEN 0.2 MG/DL (0.2-1.0)
[2017-03-05 02:14] LABS: RED BLOOD CELLS TNTC /HPF (0-5)
[2017-03-05 02:15] LABS: BACTERIA 1+ /HPF; EPITHELIAL CELLS NONE SEEN /HPF; MUCUS NONE SEEN /LPF; OTHER BUDDING YEAST; UCUL ADDED? YES; WHITE BLOOD CELLS 20-30 /HPF (0-5)
[2017-03-05 02:16] LABS: URINE COMMENT BUDDING YEAST
[2017-03-05 04:24] VITALS: BP 114/59
[2017-03-05 05:58] LABS: HEMATOCRIT 28.7 % (36.0-46.0); HEMOGLOBIN 9.4 G/DL (11.9-15.5); MCH 31.4 PG (29.0-34.0); MCHC 32.8 G/DL (30.0-36.0); PLATELET COUNT 250 K/uL (156-360); RBC DIS.WIDTH-CV 15.1 % (11.8-14.6); RBC DIS.WIDTH-SD 52.1 % (39-53); RED BLOOD COUNT 2.99 M/uL (3.80-5.20); WHITE BLOOD COUNT 18.6 K/uL (4.1-10.2)
[2017-03-05 06:27] LABS: INTER. NORMALIZED RATIO 1.3
[2017-03-05 06:41] LABS: CHLORIDE 109 MEQ/L (99-109); CREATININE 0.7 MG/DL (0.6-1.3); GFR ESTIMATE (CALCULATED) > 59 mL/min/; GLUCOSE 156 mg/dL (70-99); MAGNESIUM 1.5 mg/dl (1.3-2.7); PHOSPHORUS 3.4 mg/dL (2.5-4.9); POTASSIUM 3.6 MEQ/L (3.7-5.4); SODIUM 144 MEQ/L (136-147); UREA NITROGEN (BUN) 29 mg/dL (9-23)
[2017-03-05 08:00] VITALS: BP 134/78
[2017-03-05 12:46] VITALS: BP 137/74
[2017-03-05 16:00] VITALS: BP 142/75
[2017-03-05 20:01] VITALS: BP 136/64
[2017-03-06] VITALS (9 sets, daily range): BP systolic 110–132; BP diastolic 50–77
[2017-03-06 05:37] LABS: HEMATOCRIT 26.9 % (36.0-46.0); HEMOGLOBIN 8.8 G/DL (11.9-15.5); MCH 31.4 PG (29.0-34.0); MCHC 32.7 G/DL (30.0-36.0); MCV 96.1 FL (83-99); PLATELET COUNT 253 K/uL (156-360); RBC DIS.WIDTH-SD 50.9 % (39-53); WHITE BLOOD COUNT 16.9 K/uL (4.1-10.2)
[2017-03-06 05:58] LABS: INTER. NORMALIZED RATIO 1.3
[2017-03-06 06:01] LABS: CHLORIDE 108 MEQ/L (99-109); CREATININE 0.7 MG/DL (0.6-1.3); GFR ESTIMATE (CALCULATED) > 59 mL/min/; GLUCOSE 134 mg/dL (70-99); MAGNESIUM 1.7 mg/dl (1.3-2.7); PHOSPHORUS 3.5 mg/dL (2.5-4.9); POTASSIUM 3.7 MEQ/L (3.7-5.4); SODIUM 142 MEQ/L (136-147); UREA NITROGEN (BUN) 27 mg/dL (9-23)
[2017-03-07] VITALS (7 sets, daily range): BP systolic 114–138; BP diastolic 60–70
[2017-03-07 06:27] LABS: HEMOGLOBIN 10.2 G/DL (11.9-15.5); MCH 31.9 PG (29.0-34.0); MCHC 32.9 G/DL (30.0-36.0); MCV 96.9 FL (83-99); PLATELET COUNT 235 K/uL (156-360); RBC DIS.WIDTH-CV 15.4 % (11.8-14.6); RBC DIS.WIDTH-SD 51.8 % (39-53)
[2017-03-07 06:29] LABS: INTER. NORMALIZED RATIO 1.3
[2017-03-07 06:43] LABS: CHLORIDE 109 MEQ/L (99-109); CREATININE 0.7 MG/DL (0.6-1.3); GFR ESTIMATE (CALCULATED) > 59 mL/min/; GLUCOSE 146 mg/dL (70-99); PHOSPHORUS 3.5 mg/dL (2.5-4.9); POTASSIUM 4.4 MEQ/L (3.7-5.4); SODIUM 141 MEQ/L (136-147); UREA NITROGEN (BUN) 29 mg/dL (9-23)
[2017-03-07 06:48] LABS: MAGNESIUM 2.1 mg/dl (1.3-2.7)
[2017-03-08 03:10] VITALS: BP 123/66
[2017-03-08 05:29] LABS: INTER. NORMALIZED RATIO 1.5
[2017-03-08 05:34] LABS: HEMATOCRIT 29.7 % (36.0-46.0); HEMOGLOBIN 9.8 G/DL (11.9-15.5); MCH 31.5 PG (29.0-34.0); MCV 95.5 FL (83-99); PLATELET COUNT 266 K/uL (156-360); RBC DIS.WIDTH-CV 15.4 % (11.8-14.6); RBC DIS.WIDTH-SD 50.4 % (39-53); RED BLOOD COUNT 3.11 M/uL (3.80-5.20); WHITE BLOOD COUNT 14.2 K/uL (4.1-10.2)
[2017-03-08 06:04] LABS: CHLORIDE 107 MEQ/L (99-109); CREATININE 0.7 MG/DL (0.6-1.3); GFR ESTIMATE (CALCULATED) > 59 mL/min/; PHOSPHORUS 3.4 mg/dL (2.5-4.9); SODIUM 142 MEQ/L (136-147); UREA NITROGEN (BUN) 25 mg/dL (9-23)
[2017-03-08 06:05] LABS: GLUCOSE 101 mg/dL (70-99)
[2017-03-08 07:45] VITALS: BP 133/63
[2017-03-08 11:21] VITALS: BP 115/58
[2017-03-08 15:47] VITALS: BP 115/55
[2017-03-08 18:31] VITALS: BP 104/67
[2017-03-08 23:03] VITALS: BP 124/60
[2017-03-09 04:02] VITALS: BP 154/71
[2017-03-09 07:10] LABS: HEMATOCRIT 30.6 % (36.0-46.0); MCH 31.4 PG (29.0-34.0); MCHC 32.7 G/DL (30.0-36.0); MCV 96.2 FL (83-99); PLATELET COUNT 289 K/uL (156-360); RBC DIS.WIDTH-CV 15.7 % (11.8-14.6); RBC DIS.WIDTH-SD 51.6 % (39-53); RED BLOOD COUNT 3.18 M/uL (3.80-5.20); WHITE BLOOD COUNT 11.1 K/uL (4.1-10.2)
[2017-03-09 07:27] LABS: INTER. NORMALIZED RATIO 2.3
[2017-03-09 07:32] VITALS: BP 103/58
[2017-03-09 11:45] VITALS: BP 122/55
[2017-03-09 15:09] VITALS: BP 125/56
[2017-03-09 20:00] VITALS: BP 143/68
[2017-03-09 23:05] VITALS: BP 116/53
[2017-03-10 04:10] VITALS: BP 126/86
[2017-03-10 06:45] VITALS: BP 138/78
[2017-03-10 06:57] LABS: HEMATOCRIT 29.6 % (36.0-46.0); HEMOGLOBIN 9.6 G/DL (11.9-15.5); MCH 31.6 PG (29.0-34.0); MCHC 32.4 G/DL (30.0-36.0); MCV 97.4 FL (83-99); PLATELET COUNT 289 K/uL (156-360); RBC DIS.WIDTH-CV 15.9 % (11.8-14.6); RBC DIS.WIDTH-SD 54.3 % (39-53); RED BLOOD COUNT 3.04 M/uL (3.80-5.20); WHITE BLOOD COUNT 10.6 K/uL (4.1-10.2)
[2017-03-10 07:12] LABS: INTER. NORMALIZED RATIO 2.9
[2017-03-10 07:15] LABS: ALBUMIN 2.3 G/DL (3.2-4.8); ALKALINE PHOSPHATASE 81 IU/L (3-129); ALT (GPT) 10 IU/L (3-49); AST (GOT) 11 IU/L (2-34); CHLORIDE 108 MEQ/L (99-109); CREATININE 0.7 MG/DL (0.6-1.3); GFR ESTIMATE (CALCULATED) > 59 mL/min/; GLUCOSE 95 mg/dL (70-99); POTASSIUM 3.9 MEQ/L (3.7-5.4); SODIUM 145 MEQ/L (136-147); TOTAL BILIRUBIN 0.5 MG/DL (0.0-1.0); TOTAL PROTEIN 4.5 G/DL (6.4-8.3); UREA NITROGEN (BUN) 13 mg/dL (9-23)
== END 2017-03-10 13:04 | DRG 329 ==
LOC: SDC 13:41 → CANRESERV 16:52 → ENRESERV 16:52 → 4EAST 16:53 → 2SOUTH 16:53 → 4WEST 16:53 → ENRESERV 16:56 → 4WEST 18:06 → ENRESERV 02-27 21:47 → 4EAST 02-27 23:41 → ENRESERV 03-05 17:16 → 2EAST 03-08 18:10
PROVIDERS: Internal Medicine; Physician Assistant; Surgery
PROC: 0D1N0ZP Bypass Sigmoid Colon to Rectum, Open Approach (ICD-10-PCS; principal; 2017-02-28)
PROC: 05H633Z Insertion of Infusion Device into Left Subclavian Vein, Percutaneous Approach (ICD-10-PCS; principal; 2017-02-28)
PROC: 0DBN0ZZ Excision of Sigmoid Colon, Open Approach (ICD-10-PCS; 2017-02-28)
PROC: 3E0436Z Introduction of Nutritional Substance into Central Vein, Percutaneous Approach (ICD-10-PCS; 2017-03-08)
DX: K57.21 Diverticulitis of large intestine with perforation and abscess with bleeding (principal); N39.0 Urinary tract infection, site not specified; K92.2 Gastrointestinal hemorrhage, unspecified; I48.91 Unspecified atrial fibrillation; I10 Essential (primary) hypertension; I82.442 Acute embolism and thrombosis of left tibial vein; I26.99 Other pulmonary embolism without acute cor pulmonale; E78.5 Hyperlipidemia, unspecified; J18.9 Pneumonia, unspecified organism; K66.8 Other specified disorders of peritoneum; I25.5 Ischemic cardiomyopathy; D64.9 Anemia, unspecified; I42.0 Dilated cardiomyopathy; J45.30 Mild persistent asthma, uncomplicated; K59.00 Constipation, unspecified; Z87.891 Personal history of nicotine dependence; Z86.711 Personal history of pulmonary embolism; Z87.01 Personal history of pneumonia (recurrent)
CPT/HCPCS: 71045; 80048; 80053; 81003; 81050; 82248; 82948; 83735; 84100; 84134; 84478; 84540; 84630 90; 85025; 85027; 85610; 86850; 86900; 86901; 86920; 87086; 87106; 87641; 88307; 94640; 94640 76; 94760; 94799; 97530 GO; 97530 GP; C1751; J0131; J1170; J1335; J1450; J1650; J1815; J1940; J2370; J2405; J2543; J3480; J7050; P9016; P9045

== ENCOUNTER 2017-03-10 12:55 | Inpatient (IN) | payer OTHER ==
[~2017-03-10] VITALS: Ht 167.6 cm; Wt 78.1 kg
[2017-03-10 13:44] VITALS: BP 138/61
[2017-03-10 15:36] VITALS: BP 109/60
[2017-03-10 23:31] VITALS: BP 112/54
[2017-03-11 05:30] VITALS: BP 130/60
[2017-03-11 06:34] LABS: HEMATOCRIT 29.7 % (36.0-46.0); HEMOGLOBIN 9.8 G/DL (11.9-15.5); MCH 32.6 PG (29.0-34.0); MCV 98.7 FL (83-99); PLATELET COUNT 320 K/uL (156-360); RED BLOOD COUNT 3.01 M/uL (3.80-5.20); WHITE BLOOD COUNT 9.7 K/uL (4.1-10.2)
[2017-03-11 06:39] LABS: INTER. NORMALIZED RATIO 2.8
[2017-03-11 06:47] LABS: ALBUMIN 2.6 G/DL (3.2-4.8); ALKALINE PHOSPHATASE 84 IU/L (3-129); ALT (GPT) 11 IU/L (3-49); AST (GOT) 10 IU/L (2-34); CHLORIDE 106 MEQ/L (99-109); CREATININE 0.8 MG/DL (0.6-1.3); GFR ESTIMATE (CALCULATED) > 59 mL/min/; GLUCOSE 102 mg/dL (70-99); POTASSIUM 3.8 MEQ/L (3.7-5.4); SODIUM 142 MEQ/L (136-147); TOTAL BILIRUBIN 0.5 MG/DL (0.0-1.0); UREA NITROGEN (BUN) 15 mg/dL (9-23)
[2017-03-11 06:57] LABS: TOTAL PROTEIN 5.2 G/DL (6.4-8.3)
[2017-03-11 15:45] VITALS: BP 122/58
[2017-03-12 05:32] VITALS: BP 90/58
[2017-03-12 05:51] LABS: INTER. NORMALIZED RATIO 3.2
[2017-03-12 15:50] VITALS: BP 112/55
[2017-03-13 05:12] LABS: INTER. NORMALIZED RATIO 3.3
[2017-03-13 05:39] VITALS: BP 98/50
[2017-03-13 09:17] VITALS: BP 110/60
[2017-03-13 15:32] VITALS: BP 123/59
[2017-03-14 05:42] VITALS: BP 109/56
[2017-03-14 06:38] LABS: INTER. NORMALIZED RATIO 2.5
[2017-03-14 15:36] VITALS: BP 114/56
[2017-03-15 04:50] LABS: INTER. NORMALIZED RATIO 1.9
[2017-03-15 06:39] VITALS: BP 128/56
[2017-03-15 15:58] VITALS: BP 114/68
[2017-03-16 05:23] LABS: INTER. NORMALIZED RATIO 1.7
[2017-03-16 05:39] LABS: HEMATOCRIT 30.1 % (36.0-46.0); HEMOGLOBIN 9.5 G/DL (11.9-15.5); MCH 31.6 PG (29.0-34.0); MCHC 31.6 G/DL (30.0-36.0); RBC DIS.WIDTH-CV 16.2 % (11.8-14.6); RBC DIS.WIDTH-SD 58.9 % (39-53); RED BLOOD COUNT 3.01 M/uL (3.80-5.20); WHITE BLOOD COUNT 7.3 K/uL (4.1-10.2)
[2017-03-16 05:40] LABS: PLATELET COUNT 450 K/uL (156-360)
[2017-03-16 06:06] LABS: CHLORIDE 105 MEQ/L (99-109); CREATININE 0.8 MG/DL (0.6-1.3); GFR ESTIMATE (CALCULATED) > 59 mL/min/; GLUCOSE 119 mg/dL (70-99); POTASSIUM 3.9 MEQ/L (3.7-5.4); SODIUM 140 MEQ/L (136-147); UREA NITROGEN (BUN) 14 mg/dL (9-23)
[2017-03-16 07:03] VITALS: BP 117/56
[2017-03-16 15:48] VITALS: BP 124/58
[2017-03-17 04:59] LABS: INTER. NORMALIZED RATIO 1.6
[2017-03-17 07:11] VITALS: BP 117/57
[2017-03-17 16:11] VITALS: BP 131/60
[2017-03-18 06:40] LABS: INTER. NORMALIZED RATIO 1.6
[2017-03-18] MEDS ORDERED: COREG6.25 M1 PO (13:12)
[2017-03-18] MEDS ORDERED: ADVAIR HFA120 INHALA IH (13:12)
[2017-03-18] MEDS ORDERED: SPIRIVA RESPIMAT4 G1 IH (13:12)
[2017-03-18] MEDS ORDERED: LORAZEPAM0.5 MG PO (13:12)
[2017-03-18] MEDS ORDERED: COUMADIN5 MG PO (13:12)
[2017-03-18] MEDS ORDERED: B-12500 MC1 SL (13:12)
[2017-03-18] MEDS ORDERED: LO-DOSE ASPIRIN81 M2 PO (13:12)
[2017-03-18] MEDS ORDERED: LOVENOX80 MG/0.8 SC (13:12)
[2017-03-18] MEDS ORDERED: CARDIZEM CD,CA180 MG PO (13:12)
[2017-03-18] MEDS ORDERED: SINGULAIR10 MG PO (13:12)
[2017-03-18] MEDS ORDERED: SIMVASTATIN10 MG PO (13:12)
[2017-03-18] MEDS ORDERED: COUMADIN3 MG PO (15:00)
[2017-03-18] MEDS ORDERED: COUMADIN4 MG PO (15:00)
[2017-03-18 15:33] VITALS: BP 121/64
== END 2017-03-18 16:14 | disposition home health service (06) | DRG 945 ==
LOC: 3WEST 12:55 → ENPENDDIS 03-18 → 3WEST 03-18 16:14
PROVIDERS: Family Medicine; Psychiatry & Neurology Neurology
PROC: F07M0ZZ Range of Motion and Joint Mobility Treatment of Musculoskeletal System - Whole Body (ICD-10-PCS; principal; 2017-03-10)
DX: R53.1 Weakness (principal); I50.20 Unspecified systolic (congestive) heart failure; Z87.01 Personal history of pneumonia (recurrent); Z86.711 Personal history of pulmonary embolism; Z86.718 Personal history of other venous thrombosis and embolism; Z91.81 History of falling; D64.9 Anemia, unspecified; I11.0 Hypertensive heart disease with heart failure; E78.5 Hyperlipidemia, unspecified; I42.9 Cardiomyopathy, unspecified; E83.51 Hypocalcemia; I48.91 Unspecified atrial fibrillation; I73.9 Peripheral vascular disease, unspecified
CPT/HCPCS: 80048; 80053; 85027; 85610; 94640 76; 97110 GO; 97530 GP; 99202; J1650

== ENCOUNTER 2017-04-04 13:19 | Emergency (ER) | payer OTHER ==
[~2017-04-04] VITALS: Ht 167.6 cm; Wt 69.6 kg
[~2017-04-04 13:19] MED LIST changes: +COUMADIN4 MG PO; +COUMADIN5 MG PO; +LOVENOX80 MG/0.8 SC
[2017-04-04] MEDS ORDERED: NORCO 5/3251 TABLET PO (15:03)
[2017-04-04 16:00] VITALS: BP 117/82
[2017-04-05] MEDS ORDERED: VITAMIN B-12250 MCG PO (13:29)
[2017-04-05] MEDS ORDERED: ATIVAN0.5 MG PO (13:32)
[2017-04-05] MEDS ORDERED: CARTIA XT180 MG PO (13:32)
[2017-04-05] MEDS ORDERED: CARVEDILOL6.25 MG PO (13:39)
[2017-04-05] MEDS ORDERED: TYLENOL EXTRA500 MG PO (13:43)
[2017-04-05] MEDS ORDERED: MONTELUKAST SOD10 MG PO (13:43)
[2017-04-05] MEDS ORDERED: WARFARIN SODIUM3 MG PO (13:52)
== END 2017-04-04 16:02 | disposition home or self-care (01) ==
LOC: EME 13:19
DX: S42.211A Unspecified displaced fracture of surgical neck of right humerus, initial encounter for closed fracture (principal); S42.251A Displaced fracture of greater tuberosity of right humerus, initial encounter for closed fracture; W01.0XXA Fall on same level from slipping, tripping and stumbling without subsequent striking against object, initial encounter; I10 Essential (primary) hypertension; E78.5 Hyperlipidemia, unspecified; J45.909 Unspecified asthma, uncomplicated; Z86.718 Personal history of other venous thrombosis and embolism; Z79.01 Long term (current) use of anticoagulants; Z79.82 Long term (current) use of aspirin; Z87.891 Personal history of nicotine dependence
CPT/HCPCS: 73030; 99281; 99283

== ENCOUNTER 2017-04-05 01:31 | Inpatient (IN) | payer OTHER ==
[~2017-04-05] VITALS: Ht 167.6 cm; Wt 65.0 kg
[~2017-04-05 01:31] MED LIST changes: +NORCO 5/3251 TABLET PO
[2017-04-05 03:26] LABS: INTER. NORMALIZED RATIO 1.8
[2017-04-05 03:28] LABS: PTT 30.4 SEC (25-37)
[2017-04-05 03:30] LABS: BASOPHIL (%) 0.2 % (0-1); EOSINOPHIL (%) 0 % (0-5); HEMATOCRIT 32.6 % (36.0-46.0); HEMOGLOBIN 10.7 G/DL (11.9-15.5); IMMATURE GRANULOCYTE (%) 0.9 % (0.0-0.7); LYMPHOCYTE (%) 6.2 % (15-42); LYMPHOCYTE COUNT 1.2 K/uL (1.0-2.8); MCH 32.2 PG (29.0-34.0); MCHC 32.8 G/DL (30.0-36.0); MCV 98.2 FL (83-99); MONOCYTE (%) 6.1 % (3-12); MONOCYTE COUNT 1.1 K/uL (0-0.8); NEUTROPHIL (%) 86.6 % (45-76); RBC DIS.WIDTH-CV 16.2 % (11.8-14.6); RBC DIS.WIDTH-SD 58.4 % (39-53); RED BLOOD COUNT 3.32 M/uL (3.80-5.20); WHITE BLOOD COUNT 18.5 K/uL (4.1-10.2)
[2017-04-05 03:37] LABS: ALBUMIN 3.2 g/dL (3.2-4.8); CHLORIDE 107 mEq/L (99-109); POTASSIUM 3.7 mEq/L (3.7-5.4); SODIUM 142 mEq/L (136-147)
[2017-04-05 03:38] LABS: MAGNESIUM 1.7 mg/dL (1.3-2.7)
[2017-04-05 03:40] LABS: GLUCOSE 148 mg/dL (70-99)
[2017-04-05 03:42] LABS: TOTAL BILIRUBIN 0.7 mg/dL (0.0-1.0)
[2017-04-05 03:43] LABS: ALKALINE PHOSPHATASE 93 IU/L (3-129)
[2017-04-05 03:44] LABS: CREATININE 0.7 mg/dL (0.6-1.3); GFR ESTIMATE (CALCULATED) > 59 mL/min/
[2017-04-05 03:45] LABS: AST (GOT) 15 IU/L (2-34); UREA NITROGEN (BUN) 14 mg/dL (9-23)
[2017-04-05 03:46] LABS: ALT (GPT) 21 IU/L (3-49)
[2017-04-05 04:10] LABS: PLATELET CLUMPS PRESENT - PLATELET COUNT APPEARS ADQ.; PLATELET COUNT UNABLE TO REPORT K/uL (156-360)
[2017-04-05 05:09] LABS: APPEARANCE CLEAR ((CLEAR)); BILIRUBIN NEGATIVE; BLOOD NEGATIVE; COLOR YELLOW ((YELLOW)); GLUCOSE (STRIP) NEGATIVE; KETONES NEGATIVE; LEUKOCYTES NEGATIVE; NITRITE NEGATIVE; PROTEIN (STRIP) NEGATIVE; SPECIFIC GRAVITY 1.023 (1.000-1.030); UCUL ADDED? NO; UROBILINOGEN 0.2 MG/DL (0.2-1.0)
[2017-04-05] MEDS ORDERED: VITAMIN B-12250 MCG PO (13:29)
[2017-04-05] MEDS ORDERED: CARTIA XT180 MG PO (13:32)
[2017-04-05] MEDS ORDERED: ATIVAN0.5 MG PO (13:32)
[2017-04-05] MEDS ORDERED: CARVEDILOL6.25 MG PO (13:39)
[2017-04-05] MEDS ORDERED: MONTELUKAST SOD10 MG PO (13:43)
[2017-04-05] MEDS ORDERED: TYLENOL EXTRA500 MG PO (13:43)
[2017-04-05] MEDS ORDERED: WARFARIN SODIUM3 MG PO (13:52)
[2017-04-05 16:38] VITALS: BP 139/66
[2017-04-05 19:55] VITALS: BP 118/64
[2017-04-05 22:11] LABS: INTER. NORMALIZED RATIO 1.7
[2017-04-06] VITALS (7 sets, daily range): BP systolic 84–157; BP diastolic 59–68
[2017-04-06 05:48] LABS: HEMATOCRIT 27.7 % (36.0-46.0); HEMOGLOBIN 8.9 G/DL (11.9-15.5); MCH 31.9 PG (29.0-34.0); MCHC 32.1 G/DL (30.0-36.0); MCV 99.3 FL (83-99); PLATELET COUNT 228 K/uL (156-360); RBC DIS.WIDTH-CV 16.1 % (11.8-14.6); RBC DIS.WIDTH-SD 58.3 % (39-53); RED BLOOD COUNT 2.79 M/uL (3.80-5.20)
[2017-04-06 06:07] LABS: CHLORIDE 104 MEQ/L (99-109); CREATININE 0.8 MG/DL (0.6-1.3); GFR ESTIMATE (CALCULATED) > 59 mL/min/; INTER. NORMALIZED RATIO 1.5; SODIUM 137 MEQ/L (136-147); UREA NITROGEN (BUN) 14 mg/dL (9-23)
[2017-04-06 06:09] LABS: GLUCOSE 102 mg/dL (70-99)
[2017-04-06 23:08] LABS: APPEARANCE SL.HAZY ((CLEAR)); BILIRUBIN NEGATIVE; BLOOD SMALL; COLOR YELLOW ((YELLOW)); GLUCOSE (STRIP) NEGATIVE; KETONES NEGATIVE; LEUKOCYTES NEGATIVE; NITRITE NEGATIVE; PROTEIN (STRIP) NEGATIVE; UROBILINOGEN 0.2 MG/DL (0.2-1.0)
[2017-04-06 23:12] LABS: BACTERIA NONE SEEN /HPF; EPITHELIAL CELLS RARE /HPF; MUCUS TRACE /LPF; RED BLOOD CELLS 0-5 /HPF (0-5); WHITE BLOOD CELLS 0-5 /HPF (0-5)
[2017-04-07] VITALS: BP 157/67
[2017-04-07 04:50] LABS: HEMATOCRIT 25.3 % (36.0-46.0); HEMOGLOBIN 8.4 G/DL (11.9-15.5); MCV 97.3 FL (83-99)
[2017-04-07 09:43] VITALS: BP 84/56
[2017-04-07 10:18] LABS: INTER. NORMALIZED RATIO 1.4
[2017-04-07 13:45] VITALS: BP 121/76
[2017-04-07 16:49] VITALS: BP 139/78; BP 99/65
[2017-04-07 19:40] VITALS: BP 100/60
[2017-04-07 23:35] VITALS: BP 110/72
[2017-04-08 05:32] VITALS: BP 98/68
[2017-04-08 05:48] LABS: HEMATOCRIT 25.6 % (36.0-46.0); HEMOGLOBIN 8.2 G/DL (11.9-15.5); MCH 31.7 PG (29.0-34.0); MCV 98.8 FL (83-99); PLATELET COUNT 253 K/uL (156-360); RBC DIS.WIDTH-CV 15.9 % (11.8-14.6); RBC DIS.WIDTH-SD 57.1 % (39-53); RED BLOOD COUNT 2.59 M/uL (3.80-5.20)
[2017-04-08 06:09] LABS: CHLORIDE 107 MEQ/L (99-109); CREATININE 0.7 MG/DL (0.6-1.3); GFR ESTIMATE (CALCULATED) > 59 mL/min/; GLUCOSE 120 mg/dL (70-99); POTASSIUM 3.8 MEQ/L (3.7-5.4); SODIUM 139 MEQ/L (136-147); UREA NITROGEN (BUN) 12 mg/dL (9-23)
[2017-04-08 06:36] LABS: INTER. NORMALIZED RATIO 1.5
[2017-04-08 08:15] VITALS: BP 112/68
[2017-04-08 15:58] VITALS: BP 113/63
[2017-04-08 20:06] VITALS: BP 102/73
[2017-04-09 00:47] VITALS: BP 110/64
[2017-04-09 04:25] VITALS: BP 112/70
[2017-04-09 07:01] LABS: HEMATOCRIT 26.1 % (36.0-46.0); HEMOGLOBIN 8.2 G/DL (11.9-15.5); MCH 30.7 PG (29.0-34.0); MCHC 31.4 G/DL (30.0-36.0); MCV 97.8 FL (83-99); PLATELET COUNT 292 K/uL (156-360); RBC DIS.WIDTH-CV 15.9 % (11.8-14.6); RBC DIS.WIDTH-SD 56.6 % (39-53); RED BLOOD COUNT 2.67 M/uL (3.80-5.20)
[2017-04-09 07:04] LABS: INTER. NORMALIZED RATIO 1.5
[2017-04-09 07:28] LABS: CHLORIDE 103 MEQ/L (99-109); CREATININE 0.5 MG/DL (0.6-1.3); GFR ESTIMATE (CALCULATED) > 59 mL/min/; GLUCOSE 106 mg/dL (70-99); POTASSIUM 3.7 MEQ/L (3.7-5.4); SODIUM 143 MEQ/L (136-147); UREA NITROGEN (BUN) 11 mg/dL (9-23)
[2017-04-09 08:00] VITALS: BP 107/63
[2017-04-09 12:14] VITALS: BP 102/55
[2017-04-09 15:29] VITALS: BP 107/70
[2017-04-09 19:48] VITALS: BP 101/58
[2017-04-10] VITALS (7 sets, daily range): BP systolic 95–139; BP diastolic 60–90
[2017-04-10 05:51] LABS: HEMATOCRIT 27.2 % (36.0-46.0); HEMOGLOBIN 8.7 G/DL (11.9-15.5); MCH 31.4 PG (29.0-34.0); MCV 98.2 FL (83-99); NRBC (%) 0.2 /100 WBC (0-0); PLATELET COUNT 355 K/uL (156-360); RBC DIS.WIDTH-CV 15.8 % (11.8-14.6); RED BLOOD COUNT 2.77 M/uL (3.80-5.20); WHITE BLOOD COUNT 12.5 K/uL (4.1-10.2)
[2017-04-10 06:14] LABS: INTER. NORMALIZED RATIO 1.5
[2017-04-10 06:19] LABS: CHLORIDE 104 MEQ/L (99-109); CREATININE 0.6 MG/DL (0.6-1.3); GFR ESTIMATE (CALCULATED) > 59 mL/min/; GLUCOSE 113 mg/dL (70-99); POTASSIUM 3.8 MEQ/L (3.7-5.4); SODIUM 139 MEQ/L (136-147); UREA NITROGEN (BUN) 12 mg/dL (9-23)
[2017-04-11 00:43] VITALS: BP 104/67
[2017-04-11 03:30] VITALS: BP 118/58
[2017-04-11 06:10] LABS: INTER. NORMALIZED RATIO 1.6
[2017-04-11 08:39] VITALS: BP 116/70
[2017-04-11 10:52] VITALS: BP 102/70
[2017-04-11] MEDS ORDERED: DUONEB 2.5-0.5 M3 ML AEROSOL (15:09)
[2017-04-11] MEDS ORDERED: LOVENOX60 MG/0.6 SC (15:10)
[2017-04-11] MEDS ORDERED: COUMADIN3 MG PO (15:13)
[2017-04-11] MEDS ORDERED: COUMADIN1 MG PO (15:15)
[2017-04-11] MEDS ORDERED: PRAVASTATIN SOD80 MG PO (15:16)
[2017-04-11] MEDS ORDERED: TYLENOL REGULA325 MG PO (15:21)
[2017-04-11] MEDS ORDERED: OXYCODONE HCL5 MG PO (15:22)
[2017-04-11 15:47] VITALS: BP 111/63
== END 2017-04-11 19:21 | DRG 492 ==
LOC: EME → EDBD 01:31 → EME 01:31 → 3EAST 05:02 → EDOF 05:02 → ENRESERV 05:07 → EDOF 11:59 → ENRESERV 13:17 → 3EAST 15:39
PROVIDERS: Emergency Medicine; Family Medicine; Orthopaedic Surgery
PROC: 0PSC06Z Reposition Right Humeral Head with Intramedullary Internal Fixation Device, Open Approach (ICD-10-PCS; principal; 2017-04-06)
DX: S42.351A Displaced comminuted fracture of shaft of humerus, right arm, initial encounter for closed fracture (principal); S42.201A Unspecified fracture of upper end of right humerus, initial encounter for closed fracture; I26.99 Other pulmonary embolism without acute cor pulmonale; R78.81 Bacteremia; I50.20 Unspecified systolic (congestive) heart failure; I48.2 Chronic atrial fibrillation; S32.591A Other specified fracture of right pubis, initial encounter for closed fracture; S32.10XA Unspecified fracture of sacrum, initial encounter for closed fracture; S32.592A Other specified fracture of left pubis, initial encounter for closed fracture; I25.5 Ischemic cardiomyopathy; W01.0XXA Fall on same level from slipping, tripping and stumbling without subsequent striking against object, initial encounter; J45.909 Unspecified asthma, uncomplicated; J98.11 Atelectasis; I27.20 Pulmonary hypertension, unspecified; D64.9 Anemia, unspecified; E78.5 Hyperlipidemia, unspecified; I11.0 Hypertensive heart disease with heart failure; B95.7 Other staphylococcus as the cause of diseases classified elsewhere; Z90.49 Acquired absence of other specified parts of digestive tract; Z87.891 Personal history of nicotine dependence; Z87.442 Personal history of urinary calculi; Z86.718 Personal history of other venous thrombosis and embolism; Z86.711 Personal history of pulmonary embolism; Z79.01 Long term (current) use of anticoagulants; I25.2 Old myocardial infarction
CPT/HCPCS: 70450; 71045; 72192; 72220; 73030; 73060; 73200; 73522; 76000; 80048; 80053; 81003; 83735; 85014; 85018; 85025; 85027; 85610; 85730; 87040; 87077; 87186; 87801; 93005; 94640; 94640 76; 94799; 97530 GO; 97530 GP; 99202; 99281; 99283; 99285; C1713; J0330; J0690; J0696; J1100; J1170; J1650; J2270; J2370; J2405; J3010; J7040; P9045

== ENCOUNTER 2017-06-30 09:45 | Inpatient (IN) | payer OTHER ==
[~2017-06-30] VITALS: Ht 167.6 cm; Wt 60.0 kg
[~2017-06-30 09:45] MED LIST changes: +ATIVAN0.5 MG PO; +CARTIA XT180 MG PO; +CARVEDILOL6.25 MG PO; +COUMADIN1 MG PO; +LOVENOX60 MG/0.6 SC; +MONTELUKAST SOD10 MG PO; +OXYCODONE HCL5 MG PO; +PRAVASTATIN SOD80 MG PO; +TYLENOL EXTRA500 MG PO; +TYLENOL REGULA325 MG PO; +VITAMIN B-12250 MCG PO; +WARFARIN SODIUM3 MG PO
[2017-06-30 10:27] LABS: BASOPHIL (%) 0.3 % (0-1); EOSINOPHIL COUNT 0.1 K/uL (0-0.3); HEMATOCRIT 47.2 % (36.0-46.0); IMMATURE GRANULOCYTE (%) 0.3 % (0.0-0.7); LYMPHOCYTE (%) 11.3 % (15-42); LYMPHOCYTE COUNT 1.3 K/uL (1.0-2.8); MCH 29.9 PG (29.0-34.0); MCHC 33.1 G/DL (30.0-36.0); MCV 90.4 FL (83-99); MONOCYTE (%) 6.4 % (3-12); MONOCYTE COUNT 0.8 K/uL (0-0.8); NEUTROPHIL (%) 80.7 % (45-76); NEUTROPHIL COUNT 9.5 K/uL (1.8-6.4); PLATELET COUNT 267 K/uL (156-360); RBC DIS.WIDTH-CV 15.6 % (11.8-14.6); RBC DIS.WIDTH-SD 50.7 % (39-53); RED BLOOD COUNT 5.22 M/uL (3.80-5.20); WHITE BLOOD COUNT 11.7 K/uL (4.1-10.2)
[2017-06-30 10:29] LABS: HEMOGLOBIN 15.6 G/DL (11.9-15.5)
[2017-06-30 10:33] LABS: INTER. NORMALIZED RATIO 1.9
[2017-06-30 10:35] LABS: PTT 32.9 SEC (25-37)
[2017-06-30 10:37] LABS: CHLORIDE 99 mEq/L (99-109); POTASSIUM 2.8 mEq/L (3.7-5.4); SODIUM 145 mEq/L (136-147)
[2017-06-30 10:39] LABS: GLUCOSE 93 mg/dL (70-99)
[2017-06-30 10:43] LABS: CREATININE 0.8 mg/dL (0.6-1.3); GFR ESTIMATE (CALCULATED) > 59 mL/min/
[2017-06-30 10:44] LABS: UREA NITROGEN (BUN) 9 mg/dL (9-23)
[2017-06-30 10:47] LABS: TROP-I INTERPRETATION NEGATIVE; TROPONIN-I 0.05 ng/mL (0.0-0.30)
[2017-06-30] MEDS ORDERED: SERTRALINE HCL50 MG PO (13:33)
[2017-06-30] MEDS ORDERED: TRAMADOL HCL50 MG PO (13:33)
[2017-06-30] MEDS ORDERED: FUROSEMIDE20 MG PO (13:34)
[2017-06-30] MEDS ORDERED: MIRTAZAPINE15 MG PO (13:34)
[2017-06-30] MEDS ORDERED: ACETAMINOPHEN325 M1 PO (13:35)
[2017-06-30 15:12] VITALS: BP 97/56
[2017-06-30 19:00] VITALS: BP 90/58
[2017-07-01] VITALS (8 sets, daily range): BP systolic 100–166; BP diastolic 62–105
[2017-07-01 06:01] LABS: INTER. NORMALIZED RATIO 1.8
[2017-07-01 06:19] LABS: ALBUMIN 2.8 G/DL (3.2-4.8); ALKALINE PHOSPHATASE 93 IU/L (3-129); ALT (GPT) 7 IU/L (3-49); AST (GOT) 10 IU/L (2-34); CHLORIDE 103 MEQ/L (99-109); GFR ESTIMATE (CALCULATED) 57 mL/min/; GLUCOSE 104 mg/dL (70-99); SODIUM 141 MEQ/L (136-147); TOTAL BILIRUBIN 0.6 MG/DL (0.0-1.0); TOTAL PROTEIN 5.7 G/DL (6.4-8.3); UREA NITROGEN (BUN) 15 mg/dL (9-23)
[2017-07-01 06:36] LABS: POTASSIUM 3.6 MEQ/L (3.7-5.4)
[2017-07-02 04:00] VITALS: BP 127/76
[2017-07-02 05:23] LABS: INTER. NORMALIZED RATIO 1.8
[2017-07-02 07:31] VITALS: BP 117/74
[2017-07-02 11:56] VITALS: BP 109/56
[2017-07-02 15:19] VITALS: BP 96/58
[2017-07-02 20:00] VITALS: BP 104/74
[2017-07-03 00:18] VITALS: BP 113/65
[2017-07-03 04:46] VITALS: BP 116/75
[2017-07-03 05:31] LABS: INTER. NORMALIZED RATIO 1.7
[2017-07-03 05:48] LABS: ALBUMIN 2.6 G/DL (3.2-4.8); ALKALINE PHOSPHATASE 96 IU/L (3-129); ALT (GPT) 7 IU/L (3-49); CHLORIDE 105 MEQ/L (99-109); CREATININE 0.8 MG/DL (0.6-1.3); GFR ESTIMATE (CALCULATED) > 59 mL/min/; GLUCOSE 85 mg/dL (70-99); SODIUM 139 MEQ/L (136-147); TOTAL BILIRUBIN 0.5 MG/DL (0.0-1.0); TOTAL PROTEIN 5.1 G/DL (6.4-8.3); UREA NITROGEN (BUN) 13 mg/dL (9-23)
[2017-07-03 05:51] LABS: AST (GOT) 15 IU/L (2-34); POTASSIUM 5.1 MEQ/L (3.7-5.4)
[2017-07-03 05:52] LABS: BASOPHIL (%) 0.3 % (0-1); EOSINOPHIL (%) 1.9 % (0-5); EOSINOPHIL COUNT 0.2 K/uL (0-0.3); HEMATOCRIT 42.5 % (36.0-46.0); IMMATURE GRANULOCYTE (%) 0.4 % (0.0-0.7); LYMPHOCYTE (%) 15.1 % (15-42); LYMPHOCYTE COUNT 1.4 K/uL (1.0-2.8); MCH 28.6 PG (29.0-34.0); MCHC 31.5 G/DL (30.0-36.0); MCV 90.8 FL (83-99); MONOCYTE (%) 7.4 % (3-12); MONOCYTE COUNT 0.7 K/uL (0-0.8); NEUTROPHIL (%) 74.9 % (45-76); NEUTROPHIL COUNT 6.9 K/uL (1.8-6.4); PLATELET COUNT 246 K/uL (156-360); RBC DIS.WIDTH-CV 15.7 % (11.8-14.6); RBC DIS.WIDTH-SD 51.7 % (39-53); RED BLOOD COUNT 4.68 M/uL (3.80-5.20); WHITE BLOOD COUNT 9.3 K/uL (4.1-10.2)
[2017-07-03 05:54] LABS: HEMOGLOBIN 13.4 G/DL (11.9-15.5)
[2017-07-03 08:09] VITALS: BP 128/76
[2017-07-03 11:00] VITALS: BP 102/64
[2017-07-03] MEDS ORDERED: DIGOXIN125 MCG PO (13:29)
[2017-07-03] MEDS ORDERED: DOCUSATE SODIU100 MG PO (13:30)
[2017-07-03] MEDS ORDERED: LISINOPRIL2.5 MG PO (13:30)
[2017-07-03 15:35] VITALS: BP 134/73
[2017-07-04] MEDS ORDERED: LISINOPRIL2.5 MG PO (21:23)
[2017-07-04] MEDS ORDERED: DIGOX125 MCG PO (21:23)
== END 2017-07-03 18:47 | disposition home health service (06) | DRG 309 ==
LOC: EME 09:45 → EDOF 13:41 → 4EAST 13:41 → ENRESERV 13:42 → 4EAST 14:54
PROVIDERS: Emergency Medicine; Internal Medicine
DX: I48.2 Chronic atrial fibrillation (principal); S32.029A Unspecified fracture of second lumbar vertebra, initial encounter for closed fracture; S09.90XA Unspecified injury of head, initial encounter; S80.219A Abrasion, unspecified knee, initial encounter; W01.198A Fall on same level from slipping, tripping and stumbling with subsequent striking against other object, initial encounter; Y92.009 Unspecified place in unspecified non-institutional (private) residence as the place of occurrence of the external cause; E87.1 Hypo-osmolality and hyponatremia; E87.6 Hypokalemia; I95.9 Hypotension, unspecified; E03.9 Hypothyroidism, unspecified; J45.909 Unspecified asthma, uncomplicated; E78.5 Hyperlipidemia, unspecified; I08.1 Rheumatic disorders of both mitral and tricuspid valves; I11.0 Hypertensive heart disease with heart failure; I50.9 Heart failure, unspecified; I25.10 Atherosclerotic heart disease of native coronary artery without angina pectoris; I27.20 Pulmonary hypertension, unspecified; I42.9 Cardiomyopathy, unspecified; G62.9 Polyneuropathy, unspecified; K21.9 Gastro-esophageal reflux disease without esophagitis; R29.6 Repeated falls; Z79.01 Long term (current) use of anticoagulants; Z86.711 Personal history of pulmonary embolism; Z86.718 Personal history of other venous thrombosis and embolism; Z86.73 Personal history of transient ischemic attack (TIA), and cerebral infarction without residual deficits; Z87.891 Personal history of nicotine dependence; Z91.19 Patient's noncompliance with other medical treatment and regimen
CPT/HCPCS: 70450; 71045; 72110; 73564; 80048; 80053; 82948; 84484; 85025; 85610; 85730; 93005; 94640 76; 94799; 99202; 99281; 99285; J1160; J3480; J7030

== ENCOUNTER 2017-07-04 20:09 | Inpatient (IN) | payer OTHER ==
[~2017-07-04] VITALS: Ht 162.6 cm; Wt 57.2 kg
[~2017-07-04 20:09] MED LIST changes: +ACETAMINOPHEN325 M1 PO; +DIGOXIN125 MCG PO; +DOCUSATE SODIU100 MG PO; +FUROSEMIDE20 MG PO; +LISINOPRIL2.5 MG PO; +MIRTAZAPINE15 MG PO; +SERTRALINE HCL50 MG PO; +TRAMADOL HCL50 MG PO
[2017-07-04] MEDS ORDERED: DIGOX125 MCG PO (21:23)
[2017-07-04] MEDS ORDERED: LISINOPRIL2.5 MG PO (21:23)
[2017-07-04 21:32] LABS: HEMATOCRIT 44.5 % (36.0-46.0); HEMOGLOBIN 14.8 G/DL (11.9-15.5); MCH 29.5 PG (29.0-34.0); MCHC 33.3 G/DL (30.0-36.0); MCV 88.6 FL (83-99); PLATELET COUNT 291 K/uL (156-360); RBC DIS.WIDTH-CV 15.8 % (11.8-14.6); RBC DIS.WIDTH-SD 51.1 % (39-53); RED BLOOD COUNT 5.02 M/uL (3.80-5.20)
[2017-07-04 21:40] LABS: CHLORIDE 102 mEq/L (99-109); POTASSIUM 4.2 mEq/L (3.7-5.4); SODIUM 140 mEq/L (136-147)
[2017-07-04 21:42] LABS: GLUCOSE 105 mg/dL (70-99)
[2017-07-04 21:46] LABS: CREATININE 0.8 mg/dL (0.6-1.3); GFR ESTIMATE (CALCULATED) > 59 mL/min/
[2017-07-04 21:47] LABS: UREA NITROGEN (BUN) 11 mg/dL (9-23)
[2017-07-04 21:54] LABS: TROP-I INTERPRETATION NEGATIVE; TROPONIN-I 0.06 ng/mL (0.0-0.30)
[2017-07-05] VITALS (7 sets, daily range): BP systolic 95–131; BP diastolic 56–87
[2017-07-06 05:41] LABS: HEMATOCRIT 40.9 % (36.0-46.0); MCH 28.5 PG (29.0-34.0); MCHC 31.8 G/DL (30.0-36.0); MCV 89.7 FL (83-99); PLATELET COUNT 290 K/uL (156-360); RBC DIS.WIDTH-CV 15.9 % (11.8-14.6); RBC DIS.WIDTH-SD 52.3 % (39-53); RED BLOOD COUNT 4.56 M/uL (3.80-5.20); WHITE BLOOD COUNT 9.5 K/uL (4.1-10.2)
[2017-07-06 06:20] LABS: CHLORIDE 104 MEQ/L (99-109); CREATININE 0.8 MG/DL (0.6-1.3); GFR ESTIMATE (CALCULATED) > 59 mL/min/; GLUCOSE 88 mg/dL (70-99); POTASSIUM 3.6 MEQ/L (3.7-5.4); SODIUM 143 MEQ/L (136-147); UREA NITROGEN (BUN) 13 mg/dL (9-23)
[2017-07-06 07:35] VITALS: BP 120/71
[2017-07-06 15:00] VITALS: BP 116/71
[2017-07-06 23:30] VITALS: BP 106/66
[2017-07-07 06:23] LABS: HEMATOCRIT 41.5 % (36.0-46.0); MCH 28.3 PG (29.0-34.0); MCHC 31.3 G/DL (30.0-36.0); MCV 90.2 FL (83-99); PLATELET COUNT 274 K/uL (156-360); RBC DIS.WIDTH-CV 15.9 % (11.8-14.6); WHITE BLOOD COUNT 10.4 K/uL (4.1-10.2)
[2017-07-07 06:46] LABS: CHLORIDE 105 MEQ/L (99-109); CREATININE 0.8 MG/DL (0.6-1.3); GFR ESTIMATE (CALCULATED) > 59 mL/min/; GLUCOSE 90 mg/dL (70-99); POTASSIUM 4.2 MEQ/L (3.7-5.4); SODIUM 142 MEQ/L (136-147); UREA NITROGEN (BUN) 11 mg/dL (9-23)
[2017-07-07 06:47] LABS: ALBUMIN 2.7 G/DL (3.2-4.8); ALT (GPT) 7 IU/L (3-49); AST (GOT) 12 IU/L (2-34); TOTAL BILIRUBIN 0.5 MG/DL (0.0-1.0); TOTAL PROTEIN 5.1 G/DL (6.4-8.3)
[2017-07-07 06:49] LABS: ALKALINE PHOSPHATASE 131 IU/L (3-129)
[2017-07-07 07:25] VITALS: BP 126/73
[2017-07-07 16:17] VITALS: BP 126/60
[2017-07-07 21:54] VITALS: BP 106/67
[2017-07-07 23:06] VITALS: BP 104/58
[2017-07-08 07:42] VITALS: BP 121/85
[2017-07-08 15:18] VITALS: BP 107/61
== END 2017-07-08 20:14 | disposition home health service (06) | DRG 92 ==
LOC: EME → EDBD 20:09 → EME 20:09 → 2EAST 22:19 → EDOF 22:19 → ENRESERV 22:29 → EDOF 07-05 00:18 → 2EAST 07-05 00:26
PROVIDERS: Emergency Medicine; Family Medicine; Internal Medicine
DX: R26.9 Unspecified abnormalities of gait and mobility (principal); R53.1 Weakness; Z91.81 History of falling; I48.2 Chronic atrial fibrillation; I48.1 Persistent atrial fibrillation; S32.9XXD Fracture of unspecified parts of lumbosacral spine and pelvis, subsequent encounter for fracture with routine healing; S32.028D Other fracture of second lumbar vertebra, subsequent encounter for fracture with routine healing; S42.291D Other displaced fracture of upper end of right humerus, subsequent encounter for fracture with routine healing; I11.0 Hypertensive heart disease with heart failure; I50.9 Heart failure, unspecified; I42.9 Cardiomyopathy, unspecified; E78.5 Hyperlipidemia, unspecified; R29.6 Repeated falls; D64.9 Anemia, unspecified; M19.90 Unspecified osteoarthritis, unspecified site; Z86.711 Personal history of pulmonary embolism; Z87.891 Personal history of nicotine dependence; Z86.718 Personal history of other venous thrombosis and embolism
CPT/HCPCS: 71045; 80048; 80053; 84484; 85027; 87493; 93005; 97530 GO; 97530 GP; 99281; 99285